=== PATIENT | female | born 1960 | race Caucasian/White ===

== ENCOUNTER 2017-03-31 09:08 | Observation (INO) ==
[2017-03-31] MEDS ORDERED: Ondansetron 4 MG/2 ML VIAL IVP ONE (09:17)
[2017-03-31] MEDS ORDERED: *HR* Morphine 2 MG/ML SYRINGE IVP ONE ×2 (09:17→11:52)
[2017-03-31] MEDS ORDERED: Aspirin 81 MG TAB.CHEW PO ONE (09:22)
--- NOTE | 2017-03-31 09:33 | Emergency Department Note ---
Disposition Clinical Impression: Atypical chest pain, Unstable angina pectoris Disposition: Admitted As Inpatient Condition: Fair Referrals: Lita Mohan, VAN LOADER [Primary Care Provider] - Forms: ED Satisfaction Letter Time of Disposition: 12:04 Chest Pain HPI - General Chief Complaint: ED Chest Pain Stated Complaint: C/P Time Seen by Provider: 03/31/17 09:13 Source: patient Mode of arrival: ambulatory Limitations: no limitations Vital Signs Reviewed: Yes Nursing Notes Reviewed: Yes - History of Present Illness HPI Narrative: 56-year-old female presents to the emergency department with chest pain that is going to her back. Patient does have history of an ascending aortic aneurysm that was 3 cm on her last visit in October it does get checked annually and is followed by Dr. Jewell. This is an incidental finding from a chest CT she had. Approximately 2 years ago. She states that yesterday she was sitting down at [employer] to have dinner when she had a sudden onset of chest pain she says it was right sided and feels like a pressure that is radiating into her back and up into her right shoulder. At that time they went home she took a full dose aspirin and said the pain went away a little bit. This morning she said she woke up having a little bit of the pain called her primary care physician Kt pearce and they recommend she go to the emergency department to be evaluated. Patient saw having any other symptoms aside of her normal where she does have history of migraines that she is complaining of a headache she has mild nausea with no vomiting since due to her mild headache. She has not had any fevers she says it is not a tearing chest pain. She has had no chills, neck pain, back pain, shortness of breath, abdominal pain, pain with urination, change in bowel movements, peritoneal the arms or legs, generalized weakness or any changes in weight. Severity scale (1-10): 5 - Related Data Home Medications Medication Instructions Recorded Confirmed Candesartan Cilexetil [Atacand] 8 mg PO BID 03/31/17 03/31/17 Desvenlafaxine Succinate [Pristiq 50 mg PO DAILY 03/31/17 03/31/17 ER] Naratriptan HCl [Amerge] 2.5 mg PO AD 03/31/17 03/31/17 Omeprazole [PriLOSEC] 20 mg PO DAILY 03/31/17 03/31/17 Previous Rx's Medication Instructions Recorded Ondansetron ODT [Zofran ODT] 4 mg SL Q6HR #12 tab.rapdis 11/05/14 Allergies Allergy/AdvReac Type Severity Reaction Status Date / Time No Known Allergies Allergy Verified 03/31/17 12:10 Review of Systems: 10 point review of systems done and negative unless otherwise stated in history of present illness. All systems ED: reviewed and negative except as stated. Review of Systems: As Per HPI Chest Pain PMH - Past Medical History Medical history: Reports: migraine, other Surgical history: Reports: hip replacement Psychiatric history: Reports: no psych history - Social History Smoking Status: Never smoker Alcohol use: Reports: none Drug use: Reports: none Physical Exam - General Limitations: no limitations General appearance: alert - Head Head exam: atraumatic, normocephalic, normal inspection - Eye Eye exam: Present: normal appearance, PERRL, EOMI - Neck Neck exam: Present: normal inspection, full ROM, trachea midline - Chest Chest inspection: Present: normal inspection, symmetric chest wall rise - Respiratory Respiratory exam: Present: normal lung sounds bilaterally - Cardiovascular Cardiovascular exam: Present: regular rate, normal rhythm, normal heart sounds - Abdominal Exam Abdominal exam: Present: soft, Non-Tender. Absent: tenderness, distention, guarding, rebound, rigidity - Extremities Exam Extremities exam: Present: normal inspection, full ROM. Absent: tenderness, pedal edema - Expanded Lower Extremity Exam Neurovascular/Tendon exam: Present: normal capillary refill. Absent: pulse deficit, motor deficit, sensory deficit, tendon deficit - Back Exam Back exam: Present: normal inspection, full ROM. Absent: tenderness - Neurological Exam Neurological exam: Present: alert, oriented X3 - Skin Skin exam: Present: warm, dry, intact, normal color Course Course Narrative: 56-year-old female presents to the emergency department complaining of chest pain since a history of aortic aneurysm. Would not do basic labs included CBC, coags, BMP as well as troponin. Will get chest x-ray as well as CT scan to her chest. We will give her morphine and Zofran for pain and nausea. Patient at this point we will reevaluate once imaging and labs come back. Vital Signs Temperature 97.9 F 03/31/17 09:09 Pulse Rate 105 03/31/17 09:09 Respiratory Rate 17 03/31/17 09:09 Blood Pressure 109/71 03/31/17 09:09 O2 Sat by Pulse Oximetry 99 03/31/17 09:09 Temperature 97.9 F 03/31/17 09:09 Pulse Rate 84 03/31/17 10:49 Respiratory Rate 16 03/31/17 10:49 Blood Pressure 103/68 03/31/17 10:49 O2 Sat by Pulse Oximetry 97 03/31/17 10:49 Oxygen Delivery Oxygen Delivery Room Air Chest Pain - MDM Narrative Medical decision making narrative: 56-year-old female presents to the emergency department complaining of chest pain. She has a history of aortic aneurysm. CT angiogram of chest came back showing no acute abnormalities. Her troponin came back normal although the labs came back normal. EKG did show some ST depression as well as T-wave inversion there was no old EKG to compare with. She never been worked up by cardiology. Due to this we felt admission would be necessary should continue to have chest pain unit after 2 mg morphine I did give her 4 mg and we are waiting to see if that her chest pain. Unable to give her nitroglycerin due to her systolic pressure being 100. We will admit to the hospitalist service already spoke with Dr. Salas who agreed to admit the patient to their service. They did ask that we consult cardiology I did page Dr. Vee and tell them about the patient. Patient otherwise is admitted to the hospitalist service in stable condition. Chest X-Ray 03/31/17 09:16 IMPRESSION: 1. No active pulmonary disease. D/ / Jef Becerra MD / Jef Becerra MD Interpreting Provider: Jef Becerra MD Chest CTA 03/31/17 09:17 IMPRESSION: No evidence for pulmonary emboli. Stable mild dilatation of the descending thoracic aorta measuring 3.5 cm again may be secondary to a form of coarctation and is unchanged from prior exam. D/ / 03/31/2017 11:32:49 Wilder Pino MD / [facility] Interpreting Provider: Wilder Pino MD - Medical Records Medical records reviewed: Yes I reviewed the patient's medical records. - Lab Data Lab results reviewed: Yes I reviewed the patient's lab results. Result diagrams: 03/31/17 09:36 03/31/17 09:36 Lab Results 03/31/17 03/31/17 03/31/17 Range/Units 09:36 09:36 09:36 WBC 4.6 (4.3-11.1) K/mcL RBC 4.76 (3.82-4.97) M/mcL Hgb 13.6 (11.5-15.4) g/dL Hct 42.4 (35.3-44.9) % MCV 89.1 (83.0-100.0) fL MCH 28.6 (28.0-33.3) pg MCHC 32.1 (31.6-35.5) g/dL RDW 14.0 (11.5-14.5) % Plt Count 241 (140-400) K/mcL MPV 10.5 (9.4-12.4) fL Immature Gran % 0.2 (0-4) % Seg Neutrophils % 51.1 % Lymphocytes % 38.0 % Monocytes % 7.4 % Eosinophils % 2.4 % Basophils % 0.9 % Neutrophils # 2.4 (1.6-8.9) K/mcL Lymphocytes # 1.8 (0.6-4.6) K/mcL Monocytes # 0.3 (0.0-1.3) K/mcL Eosinophils # 0.1 (0.0-0.6) K/mcL Basophils # 0.0 (0.0-0.2) K/mcL PT 10.6 (9.4-12.1) Seconds INR 1.0 APTT 29.2 (26.0-36.0) Seconds Sodium (136-145) mEq/L Potassium (3.5-5.1) mEq/L Chloride (98-107) mEq/L Carbon Dioxide (23-29) mEq/L BUN (6-20) mg/dL Creatinine (0.60-1.20) mg/dL Est GFR ( Amer) (> 60) Est GFR (Non-Af Amer) (> 60) BUN/Creatinine Ratio (6-26) Glucose (70-105) mg/dL Calculated Osmolality (280-300) Calcium (8.6-10.3) mg/dL Troponin I (< 0.04) ng/mL B-Natriuretic Peptide 71 (Less than 100) pg/mL Urine Color (Yellow) Urine Clarity (Clear) Urine pH (5.0-8.0) pH Units Ur Specific [place] (1.010-1.025) Urine Protein (Neg-Trace) mg/dL Urine Glucose (UA) (Normal) mg/dL Urine Ketones (Negative) mg/dL Urine Blood (Negative) Urine Nitrite (Negative) Urine Bilirubin (Negative) Urine Urobilinogen (Normal) mg/dL Ur Leukocyte Esterase (Negative) Urine Microscopic RBC (0-3) per hpf Urine Microscopic WBC (0-3) per hpf Ur Squamous Epith Cells (None-Few) per lpf Urine Bacteria (None-Few) per hpf Hyaline Casts (None-Few) per lpf Ur Culture Indicated? (NO) Blood Type Antibody Screen 03/31/17 03/31/17 03/31/17 Range/Units 09:36 09:36 10:04 WBC (4.3-11.1) K/mcL RBC (3.82-4.97) M/mcL Hgb (11.5-15.4) g/dL Hct (35.3-44.9) % MCV (83.0-100.0) fL MCH (28.0-33.3) pg MCHC (31.6-35.5) g/dL RDW (11.5-14.5) % Plt Count (140-400) K/mcL MPV (9.4-12.4) fL Immature Gran % (0-4) % Seg Neutrophils % % Lymphocytes % % Monocytes % % Eosinophils % % Basophils % % Neutrophils # (1.6-8.9) K/mcL Lymphocytes # (0.6-4.6) K/mcL Monocytes # (0.0-1.3) K/mcL Eosinophils # (0.0-0.6) K/mcL Basophils # (0.0-0.2) K/mcL PT (9.4-12.1) Seconds INR APTT (26.0-36.0) Seconds Sodium 140 (136-145) mEq/L Potassium 3.8 (3.5-5.1) mEq/L Chloride 110 H (98-107) mEq/L Carbon Dioxide 21 L (23-29) mEq/L BUN 22 H (6-20) mg/dL Creatinine 0.96 (0.60-1.20) mg/dL Est GFR ( Amer) > 60 (> 60) Est GFR (Non-Af Amer) > 60 (> 60) BUN/Creatinine Ratio 23 (6-26) Glucose 119 H (70-105) mg/dL Calculated Osmolality 294 (280-300) Calcium 9.1 (8.6-10.3) mg/dL Troponin I < 0.03 (< 0.04) ng/mL B-Natriuretic Peptide (Less than 100) pg/mL Urine Color (Yellow) Urine Clarity (Clear) Urine pH (5.0-8.0) pH Units Ur Specific [place] (1.010-1.025) Urine Protein (Neg-Trace) mg/dL Urine Glucose (UA) (Normal) mg/dL Urine Ketones (Negative) mg/dL Urine Blood (Negative) Urine Nitrite (Negative) Urine Bilirubin (Negative) Urine Urobilinogen (Normal) mg/dL Ur Leukocyte Esterase (Negative) Urine Microscopic RBC (0-3) per hpf Urine Microscopic WBC (0-3) per hpf Ur Squamous Epith Cells (None-Few) per lpf Urine Bacteria (None-Few) per hpf Hyaline Casts (None-Few) per lpf Ur Culture Indicated? (NO) Blood Type A POSITIVE Antibody Screen NEGATIVE 03/31/17 Range/Units 10:56 WBC (4.3-11.1) K/mcL RBC (3.82-4.97) M/mcL Hgb (11.5-15.4) g/dL Hct (35.3-44.9) % MCV (83.0-100.0) fL MCH (28.0-33.3) pg MCHC (31.6-35.5) g/dL RDW (11.5-14.5) % Plt Count (140-400) K/mcL MPV (9.4-12.4) fL Immature Gran % (0-4) % Seg Neutrophils % % Lymphocytes % % Monocytes % % Eosinophils % % Basophils % % Neutrophils # (1.6-8.9) K/mcL Lymphocytes # (0.6-4.6) K/mcL Monocytes # (0.0-1.3) K/mcL Eosinophils # (0.0-0.6) K/mcL Basophils # (0.0-0.2) K/mcL PT (9.4-12.1) Seconds INR APTT (26.0-36.0) Seconds Sodium (136-145) mEq/L Potassium (3.5-5.1) mEq/L Chloride (98-107) mEq/L Carbon Dioxide (23-29) mEq/L BUN (6-20) mg/dL Creatinine (0.60-1.20) mg/dL Est GFR ( Amer) (> 60) Est GFR (Non-Af Amer) (> 60) BUN/Creatinine Ratio (6-26) Glucose (70-105) mg/dL Calculated Osmolality (280-300) Calcium (8.6-10.3) mg/dL Troponin I (< 0.04) ng/mL B-Natriuretic Peptide (Less than 100) pg/mL Urine Color Yellow (Yellow) Urine Clarity Clear (Clear) Urine pH 5.5 (5.0-8.0) pH Units Ur Specific [place] 1.022 (1.010-1.025) Urine Protein Negative (Neg-Trace) mg/dL Urine Glucose (UA) Normal (Normal) mg/dL Urine Ketones Negative (Negative) mg/dL Urine Blood Negative (Negative) Urine Nitrite Negative (Negative) Urine Bilirubin Negative (Negative) Urine Urobilinogen Normal (Normal) mg/dL Ur Leukocyte Esterase Trace H (Negative) Urine Microscopic RBC 3-5 H (0-3) per hpf Urine Microscopic WBC 0-3 (0-3) per hpf Ur Squamous Epith Cells Many H (None-Few) per lpf Urine Bacteria None Seen (None-Few) per hpf Hyaline Casts None Seen (None-Few) per lpf Ur Culture Indicated? NO. (NO) Blood Type Antibody Screen - Radiology Data Radiology results reviewed: Yes I reviewed the patient's radiology results. - EKG Data EKG attestation: Yes I reviewed and interpreted this EKG. EKG results narrative: EKG done at 09 39 and reviewed by myself and the attending shows sinus tachycardia at a rate of 100, RI 135, QRS 112, QTC 4:30 there is a leftward axis. No acute ST changes. There is flipped T waves in leads V2 through V3 there is slight ST depression in V5 and V6. There is a right bundle branch block. There is no other signs of ischemia. No signs of heart strain or hypertrophy. No signs of WPW/Brugada syndrome. There is no old EKG to compare with. Heart Score - Score History: Moderately Suspicious EKG: Significant ST-Depression Age: 45-65 Risk Factors: 1-2 risk factors Troponin: Less than normal limit HEART Score Total: 5 Attestation Statement - Attestation Attestation: I, Morris Conti DO, examined this patient [id number] and my medical decision-making was reviewed with Dr. Jose Regalado, Resident Physician. I agree with the documented findings, disposition and treatment plan as described except to the extent set forth below. Please see my progress notes for details. 56-year-old female presents to emergency room with pressure behind her heart on the right side of her chest and into her right scapula. Patient denies any fevers or chills nausea vomiting or diarrhea. Denies any headache or vision change. Her main complaint is the chest pressure and tightness. Patient has known aortic aneurysm that is followed in the outpatient setting. She had a CT scan completed in October of last year showed 3 cm aneurysm and no dilation or dissection. Concern is noted with this being the source of the symptoms at this time. Patient has a stable blood pressure 109/65. No acute intervention required at this point will monitor the blood pressure closely. Patient is CT angiography the chest chest x-ray EKG labs include a CBC chemistry troponin and coagulations studies ordered at this point. Patient will be type and screen in case this is a dissecting aneurysm or some surgical emergency. Patient otherwise is resting comfortably in bed. Fluids pain medication nausea medication to be given at this time. No other concerns or issues noted initially. Patient is able to stable and resting in the bed at this point. Physical exam is otherwise unremarkable. Head is atraumatic lungs are clear heart is regular. She has no reproducible symptoms on exam shows no rash or lesions. She has no pain with palpation of the chest wall. She has no recent trauma or injury. Abdomen is soft no pulsatile lesions noted on our evaluation here at this time. Patient will most likely need admission or consultation this point. See detailed documentation of the physical exam, medical intervention, medical decision-making and disposition and the resident physician 's note. [address] angiogram for acute pulmonary emboli or expansion of the known aortic aneurysm. Patient has been hemodynamically stable here. Symptoms got slightly better with pain medication provided but did not go away. Nitroglycerin has been withheld at this time secondary to the patient's hypotensive presentation with a blood pressure 109. Patient has not been symptomatic otherwise. Repeat dose of pain medication be given at this time. Patient will be admitted for ACS rule out and evaluation. Her EKG initially was normal. No acute need for heparin at this time. Symptoms are: To angina secondary to her symptoms history and presentation. Admission process to be completed once the termination of bed is established. Patient was consult the on-call dumpling machine operator. No recommendations from them at this time. Symptoms to be controlled with narcotic pain medication. Admission process to be completed. No critical care applied during this treatment course.
[2017-03-31 09:46] LABS: Basophils % 0.9 %; Eosinophils # 0.1 K/mcL (0.0-0.6); Eosinophils % 2.4 %; Hematocrit 42.4 % (35.3-44.9); Hemoglobin 13.6 g/dL (11.5-15.4); Immature Granulocytes % 0.2 % (0-4); Lymphocytes # 1.8 K/mcL (0.6-4.6); Mean Corpuscular HGB Conc 32.1 g/dL (31.6-35.5); Mean Corpuscular Hemoglobin 28.6 pg (28.0-33.3); Mean Corpuscular Volume 89.1 fL (83.0-100.0); Mean Platelet Volume 10.5 fL (9.4-12.4); Monocytes # 0.3 K/mcL (0.0-1.3); Monocytes % 7.4 %; Neutrophils # 2.4 K/mcL (1.6-8.9); Platelet Count 241 K/mcL (140-400); Red Blood Count 4.76 M/mcL (3.82-4.97); Segmented Neutrophils % 51.1 %
[2017-03-31 10:02] LABS: Prothrombin Time 10.6 Seconds (9.4-12.1)
[2017-03-31 10:05] LABS: Activated Partial Thrombo Time 29.2 Seconds (26.0-36.0)
[2017-03-31 10:06] LABS: BUN/Creatinine Ratio 23 (6-26); Blood Urea Nitrogen 22 mg/dL (6-20); Calcium 9.1 mg/dL (8.6-10.3); Carbon Dioxide 21 mEq/L (23-29); Chloride 110 mEq/L (98-107); Glucose 119 mg/dL (70-105); Osmolality,Calculated 294 (280-300); Potassium 3.8 mEq/L (3.5-5.1); Sodium 140 mEq/L (136-145); eGFR For African Americans > 60 (> 60); eGFR For Non-African Americans > 60 (> 60)
[2017-03-31 11:04] LABS: Bilirubin,Urine Negative (Negative); Blood,Urine Negative (Negative); Clarity,Urine Clear (Clear); Color,Urine Yellow (Yellow); Glucose,Urine (UA) Normal (Normal); Ketones,Urine Negative (Negative); Leukocyte Esterase,Urine Trace (Negative); Nitrite,Urine Negative (Negative); PH,Urine 5.5 pH Units (5.0-8.0); Protein,Urine Negative (Neg-Trace); Specific Gravity,Urine 1.022 (1.010-1.025); Urobilinogen,Urine Normal (Normal)
[2017-03-31 11:05] LABS: Bacteria,Urine None Seen per hpf (None-Few); Hyaline Casts,Urine None Seen per lpf (None-Few); Squamous Epithelial Cell,Urine Many per lpf (None-Few); WBC,Urine 0-3 per hpf (0-3)
[2017-03-31] MEDS: 0.9 % Sodium Chloride 1,000 ML IVC SCH ×3 (12:27→23:54)
--- NOTE | 2017-03-31 13:10 | Internal Med History&Physical ---
Date of Encounter: 03/31/17 Time of Encounter: 13:07 Assessment and Plan (1) Chest pain Current visit: Yes Status: Acute Chest pain appears to be non-anginal. Electrocardiogram shows no ST-segment shifts. Initial troponin normal. Will trend troponin. Cardiology consultation. Keep on aspirin Qualifiers: Qualified Code(s): R07.9 - Chest pain, unspecified (2) Descending aortic aneurysm Current visit: Yes Status: Acute Patient has 3.5 cm abdominal aortic aneurysm. stable no evidence of dissection or leak. Internal Medicine - H&P: HPI Chief complaint: chest pain History of present illness: Ms. Yang is a 56 year old female presents to the emergency room today with a main component of chest pain. Patient mentioned that this chest pain started yesterday. While patient was in a restaurant and after she went to a bathroom, she started experiencing pain in the right side of the chest radiating to the right shoulder and arm. She has had down without improvement over pain. Pain continued for several hours. patient was able to sleep however she woke up with similar pain. She has not noticed any relation of pain to inspiration. She denies any prior similar problems. No known history of coronary artery disease. Patient denies any intake of hormonal therapy. Past Med Surg Social Fam HX - Past Medical History Medical history: migraine, other Psychiatric history: no psych history - Past Surgical History Surgical History: hip replacement - Social History Smoking Status: Never smoker Smokeless Tobacco Status: No Alcohol use: none Drug use: none Internal Medicine - H&P: Meds Ondansetron ODT [Zofran ODT] 4 mg SL Q6HR #12 tab.rapdis 11/05/14 [Rx] Candesartan Cilexetil [Atacand] 8 mg PO BID 03/31/17 [History] Desvenlafaxine Succinate [Pristiq ER] 50 mg PO DAILY 03/31/17 [History] Naratriptan HCl [Amerge] 2.5 mg PO AD 03/31/17 [History] Omeprazole [PriLOSEC] 20 mg PO DAILY 03/31/17 [History] 3 Allergy/AdvReac Type Severity Reaction Status Date / Time No Known Allergies Allergy Verified 03/31/17 12:10 All Systems PM: A 10-system review of systems was performed and is negative for pertinent findings except as documented above in the HPI. Review of systems: 10 point review of systems is negative except HPI - Constitutional Vitals: Temp Pulse Resp BP Pulse Ox 97.9 F 68 14 104/68 98 03/31/17 09:09 03/31/17 12:37 03/31/17 12:37 03/31/17 12:37 03/31/17 12:37 Exam: Gen.: patient is alert oriented times 3 not in distress. Cardiac: normal S1 S2 no additional sounds are murmurs. Chest: clear to auscultation. Abdomen: soft nontender nondistended. Lower extremity no swelling mucous membranes: moist Internal Med - H&P Results - Labs CBC & Chem 7: 03/31/17 09:36 03/31/17 09:36
[2017-03-31] MEDS ORDERED: Ondansetron ODT 4 MG TAB.RAPDIS SL SCH (18:00)
[2017-03-31] MEDS ORDERED: Ondansetron 4 MG/2 ML VIAL IVP PRN (18:28)
[2017-03-31] MEDS: (Naratriptan Hcl [Amerge] 2.5 MG) PO PRN (22:35)
[2017-04-01] MEDS ORDERED: Regadenoson 0.4 MG/5 ML SYRINGE IVP ONE (07:19)
[2017-04-01] MEDS ORDERED: Aspirin 81 MG TAB.CHEW PO SCH (09:00)
[2017-04-01] MEDS ORDERED: Venlafaxine XR (24 HR) 75 MG CAP.ER.24H PO SCH (09:00)
[2017-04-01] MEDS: 0.9 % Sodium Chloride 1,000 ML IVC SCH (09:11)
[2017-04-01] MEDS: (Naratriptan Hcl [Amerge] 2.5 MG) PO PRN (09:12)
[2017-04-01 15:19] VITALS: BP 106/73
--- NOTE | 2017-04-01 16:14 | Discharge Summary ---
Date of Encounter: 04/01/17 Time of Encounter: 16:12 - Discharge Diagnosis (1) Atypical chest pain Priority: Primary Status: Acute (2) Hyperglycemia Priority: Secondary Status: Acute Comments: Follow-up with primary care physician, may order a Hb A1c as an outpatient (3) Migraines Priority: Secondary Status: Acute Qualifiers: Migraine type: without aura Status migrainosus presence: without status migrainosus Intractability: not intractable Qualified Code(s): G43.009 - Migraine without aura, not intractable, without status migrainosus (4) Chest pain Priority: Primary Status: Acute Qualifiers: Qualified Code(s): R07.9 - Chest pain, unspecified (5) Descending aortic aneurysm Priority: Secondary Status: Acute Comments: CT scan showed a 3.5 cm ascending aortic aneurysm The patient is aware of it and follows up with Dr. Jewell - Discharge Medications Home Medications: Ondansetron ODT [Zofran ODT] 4 mg SL Q6HR #12 tab.rapdis 11/05/14 [Rx] Candesartan Cilexetil [Atacand] 8 mg PO BID 03/31/17 [History] Desvenlafaxine Succinate [Pristiq] 50 mg PO DAILY 03/31/17 [History] Naratriptan HCl [Amerge] 2.5 mg PO AD 03/31/17 [History] Omeprazole [PriLOSEC] 20 mg PO DAILY 03/31/17 [History] Allergies/Adverse Reactions: 3 Allergy/AdvReac Type Severity Reaction Status Date / Time No Known Allergies Allergy Verified 03/31/17 12:10 Procedures/tests Complete & Pending: Procedures Performed prior 72 hours Category Date Time Status NM elaine perf SPECT multi [NM] Routine Exams 03/31/17 20:50 Taken SP pharm nuclear stress Routine Y 03/31/17 20:49 Completed Date of admission: 03/31/17 12:37 Primary care physician: Lita Mohan CNP - Patient Status Disposition: Home, Self-Care Condition: Fair - Discharge Instructions Follow Up With: Lita Mohan CNP [Primary Care Provider] - Additional Instructions: Follow-up with primary care physician as needed. Continue blood pressure control and follow up with Dr. Jewell - Diet and Activity Activity: increase activity as tolerated Diet: low fat, low cholesterol Hospital course: Ms. Yang is a 56 year old female with a past medical history of migraines, depression, hypertension, abdominal aortic aneurysm followed by Dr. Jewell, came to the emergency room complaining of chest pain. Patient mentioned that this chest pain started the day before admission, while the patient was in a restaurant and after she went to a bathroom, she started experiencing pain in the right side of the chest radiating to the right shoulder and arm. Pain continued for several hours. patient was able to sleep however she woke up with similar pain. She has not noticed any relation of pain to inspiration. She denies any prior similar problems. No known history of coronary artery disease. Patient denies any intake of hormonal therapy. CT scan of the chest showed:No evidence for pulmonary emboli. Stable mild dilatation of the descending thoracic aorta measuring 3.5 cm again may be secondary to a form of coarctation and is unchanged from prior exam. The patient was evaluated by cardiology (note pending), Dr. Turk ordered a stress test that showed no ischemic findings. The patient denies any pain at the moment and is stable to be discharged. - Time Spent with Patient Total time spent providing and/or coordinating discharge services: Greater than 30 minutes (40 min) - Constitutional Vitals: Temp Pulse Resp BP Pulse Ox 98.1 F 102 16 106/73 98 04/01/17 15:17 04/01/17 15:17 04/01/17 15:17 04/01/17 15:17 04/01/17 15:17 - Head Head exam: Present: atraumatic, normocephalic - Eye Eye exam: Present: PERRL, conjuntiva pink, sclera anicteric Pupils: Present: PERRL - Neck Neck exam general surgery: Present: supple, trachea midline. Absent: lymphadenopathy - Respiratory Respiratory exam: Present: CTAB. Absent: accessory muscle use, rales, rhonchi, wheezes - Cardiovascular Cardiovascular exam: Present: RRR, +S1, +S2. Absent: diastolic murmur, gallop, rubs, systolic murmur - GI/Abdominal GI/Abdominal exam: Present: normal bowel sounds, soft, no peritoneal signs. Absent: distended, tenderness - Extremities Exam Extremities exam: Present: warm, radial pulses palpable and symmetrical. Absent : calf tenderness, cyanotic, pedal edema - Neurological Exam Neurological exam: Present: CN II-XII intact, oriented X3, no focal deficits. Absent: pronater drift, facial droop, speech deficit - Skin Skin exam: Present: dry, intact
--- NOTE | 2017-04-01 16:32 | Event Note ---
Date of Encounter: 04/01/17 Time of Encounter: 16:30 - Cardiology Event Note Discussed with primary service, patient was seen by Dr. Turk. Stress test negative for ischemia. DC pending. Cardiology will s/o, re-consult PRN.
--- NOTE | 2017-04-02 18:05 | Electrocardiograph Report ---
[employer] Test Date: 2017-03-31 Pat Name: Blanquita Yang Department: 104 Room: 3B39 Gender: F Traveling Phlebotomist: AM : 1960 Requested By: Morris Conti Order Number: [id number] Reading MD: Valerio Priest MD Measurements Intervals [place] Rate: 100 P: 63 MI: 135 QRS: -17 QRSD: 112 T: 30 QT: 373 QTc: 430 Interpretive Statements SINUS TACHYCARDIA INCOMPLETE RIGHT BUNDLE BRANCH BLOCK [90+ ms QRS DURATION, TERMINAL R IN V1/V2, 40+ ms S IN I/aVL/V4/V5/V6] ST DEVIATION AND MODERATE T-WAVE ABNORMALITY, CONSIDER ANTERIOR ISCHEMIA [-0.1+ mV T WAVE IN V3/V4] Electronically Signed On 04-02-2017 18:04:12 EST by Valerio Priest MD
== END 2017-04-01 16:41 | disposition home or self-care (01) ==
LOC: 2ANU 09:08 → EMEROO 09:08 → 3BNU 12:48
PROVIDERS: ADMIT Hospitalist; ATTEND Registered Nurse